=== PATIENT | female | born 1970 | race Caucasian/White ===

== ENCOUNTER → 2023-12-15 16:11 | Outpatient (REF) | payer OTHER, SELFPAY | LOC: HWWDC 16:11 | PROVIDERS: ATTENDING PHYSICIAN Nurse Practitioner Family | DX: Z12.31 Encounter for screening mammogram for malignant neoplasm of breast (principal) | CPT/HCPCS: 77063; 77067 ==

== ENCOUNTER 2024-03-17 17:05 | Inpatient (IN) | payer OTHER, SELFPAY ==
[2024-03-17 08:39] VITALS: BP 151/89
--- NOTE | 2024-03-17 09:23 | ED.GENMED ---
History of Present Illness
General
Chief Complaint: Cold/Flu/URI Symptoms
Source: patient
Exam Limitations: none
Time Seen by Provider: 03/17/24 09:10
History of Present Illness
History of Present Illness:
53-year-old female started with upper respiratory infections about a week ago. 2 days ago started developing chest symptoms with cough congestion wheezing. Pulse ox was low at overnight. I started Augmentin days ago. Changed to doxycycline and
prednisone yesterday evening. Took 60 mg of prednisone yesterday evening.
Past History
Past History
ED Past Medical History: Other (migraines, Gastritis, back pain); Negative Asthma, HTN, Hypercholesterolemia or NIDDM
ED Past Surgical History: Appendectomy, , Gynecological and Tonsilectomy
Social History
Tobacco: Smoker
Alcohol: Occasional
Drug: None
Personal:
Living: with family
Employment: Employed
Family History
Family History: Other (Noncontributory)
Review of Systems
Review of Systems
All Other Systems: Not applicable
Constitutional: Denies fever
Cardiac: Denies chest pain or syncope
Phy Exam
Physical Exam
Physical Exam:
GENERAL: Alert and oriented in no apparent distress
EYE: Orbits normal. Nasally congested.
NECK: Supple
CARDIAC: Regular rate and rhythm without any obvious murmurs.
LUNGS: No respiratory distress when speaking. However occasional coarse cough and diffuse expiratory wheezing
ABDOMEN: Soft, without focal tenderness or distention
NEUROLOGICAL: Alert and oriented , grossly non-focal
SKIN: Warm and dry, no rash or lesion, no discoloration, skin intact.
MUSCULOSKELETAL: No edema,no deformity.Good color
PSYCH: Normal and appropriate interaction.
Course
Orders/Labs/Results
Orders:
Orders
03/17/24 08:44
CXR2 [CR Chest - 2 Views ] Urgent
Comment:
Reason For Exam: uri
03/17/24 08:49
Influenza A+B Rapid Molecular Urgent
BERKLEY Source: Nasal Swab
Specimen Description:
03/17/24 09:20
Albuterol Sulfate [Ventolin Nebules] 7.5 mg INH R NOW STA
Ipratropium/Albuterol Sulfate [Duoneb] 3 ml INH R NOW STA
Prednisone [Deltasone] 40 mg PO NOW STA
03/17/24 09:54
COVID-19 Antigen Urgent
Source: Nasal Swab
Complete Blood Count/With Diff Urgent
Comprehensive Metabolic Panel Urgent
03/17/24 10:54
IV Insert/Care/Rem.- Treatment PRN
0.9% Sodium Chloride 500 ml [Nss] 500 ml IV BOLUS
Azithromycin 500 mg/250 ml [Zithromax Infusion] 500 mg in 250 ml IV NOW
CefTRIAXone [Rocephin] 1,000 mg IV NOW STA
03/17/24 12:22
PULMONARY CONSULT Routine
Consulting Provider: Tab Casey
Was physician already notified: Yes
03/17/24 12:24
Admit/Transfer Patient As Directed
Co-Sign Provider:
Level of Care: Observation services
Assign to:: Medical/Surgical
Physician / Group: mauricio woods
Diagnosis: bronchitis and pna
Reason for Hospitalization: bronchitis and pna
Expected length of stay greater than two midnights?: No
Reason for Overnight Stay: Standard of Care
03/17/24 12:26
PRN Pain Medication Management As Directed
May give lesser potent ordered pain med per pt: Yes
preference::
Protocol:: Medication orders for pain may be administered in a
manner that supports deferring to patient preference
when the pt is:
- Requesting an ordered lesser potent pain medication.
Least to most potent pain medications are defined
as: acetaminophen < NSAID < tramadol < opioids
(morphine, oxycodone, hydromorphone).
- Requesting a lesser dose of the same medication IF
ORDERED.
- Requesting a less intrusive route of administration
if both routes are prescribed by the provider (PO <
IV).
03/17/24 12:35
Code Status As Directed
Resuscitation Status: Full Code
03/17/24 12:42
Legionella Urinary Antigen Stat
BERKLEY Source: Urine
Specimen Description:
Sputum Culture [Respiratory Culture/Gram Stain] Urgent
BERKLEY Source: Sputum
Specimen Description:
Strep pneumoniae Antigen Stat
BERKLEY Source: Urine
Specimen Description:
03/17/24 14:00
CefTRIAXone [Rocephin] 1,000 mg IV Q24H
Doxycycline Hyclate [Vibramycin] 100 mg 0.9% Sodium Chloride 250 ml [Nss] 250 ml IV Q12H
03/17/24 20:00
Budesonide [Pulmicort] 0.5 mg INH R BID
Abnormal Lab Results
03/17/24
09:54
WBC 13.3 H 10^3/uL
(4.8-10.8)
Abs Immat Gran (auto) 0.1 H 10^3/uL
(0-0.05)
Absolute Neuts (auto) 10.1 H 10^3/uL
(1.4-6.5)
Absolute Monos (auto) 0.7 H 10^3/uL
(0.1-0.6)
Immature Gran % 0.6 H %
(0-0.5)
Neutrophils % 75.7 H %
(42.2-75.2)
Lymphocytes % 18.2 L %
(20.5-51.1)
Creatinine 0.5 L mg/dL
(0.6-1.0)
Glucose 119 H mg/dl
(70-99)
01/15/25 09:54
03/17/24 09:54
Vital Signs
Initial and Last Documented VS:
Initial Vital Signs
Temp Pulse Resp BP Pulse Ox
98.1 F 102 16 151/89 98
03/17/24 08:39 03/17/24 08:39 03/17/24 08:39 03/17/24 08:39 03/17/24 08:39
Last Documented Vital Signs
Temp Pulse Resp BP Pulse Ox
98.1 F 105 20 131/66 93
03/17/24 08:39 03/17/24 11:35 03/17/24 11:35 03/17/24 11:35 03/17/24 11:35
MDM/Problems Addressed
Differential Diagnosis Includes:
Patient describing upper respiratory symptoms that then progressed to lung issues. She has diffuse wheezing. She does smoke. Likely underlying viral issue. However I did question an infiltrate at the right base. She started a very reasonable
dose of prednisone last evening 60 mg. Will give a small additional dose this morning. Nebulizer treatments .reevaluate
*Radiology
Radiology exam reviewed: preliminary read by ED provider (Questionable right lower lobe infiltrate) and radiology read reviewed (Right lower lobe infiltrate)
*Pulse Oximetry
Patient hypoxic: no
*Critical Care Note
Total Time (30-74mins, 75-104mins- exclusive of procedures): Not Applicable
Data Reviewed
Review of Other/Old Records Reveals: Labs, Records, Radiology Studies, Testing and Discharge Summary
Update Note
Update Note:
Patient still with diffuse expiratory wheezing. Given the progression of symptoms despite outpatient antibiotics and history of severe pneumonia in the past patient warrants inpatient management
ED Attending Note
-
Portions of this chart may have been created with voice recognition software.� Occasional wrong word or��sound alike� substitutions may have occurred due to the inherent limitations of voice recognition software.
Discharge Plan
Departure
Patient Disposition: Admit
Date of Disposition: 03/17/24
Time of Disposition: 10:56
Presentation/result/management discussed w/ accepting MD/DO: Hospitalist
Discharge Problem:
Right lower lobe pneumonia, Failed outpatient antibiotics, Progression of symptoms
Interventions
Interventions:
*Risk Screen - Suicide Last Done: 03/17/24 08:39
*General Assessment Last Done: 03/17/24 10:54
*Neglect/Abuse Screening Last Done: 03/17/24 08:39
ED- Fall Risk Assessment Last Done: 03/17/24 11:31
*ED COVID-19 Vaccine History Last Done: 03/17/24 10:54
ED- Pulmonary Assessment Last Done: 03/17/24 10:54
[2024-03-17] MEDS: DELTASONE 40 MG PO (10:00)
[2024-03-17 10:03] LABS: % Basophils 0.2 % (0-2); % Immature Granulocytes 0.6 % (0-0.5); % Lymphocytes 18.2 % (20.5-51.1); % Monocytes 5.3 % (1.7-9.3); % Neutrophils 75.7 % (42.2-75.2); Absolute Immature Granulocytes 0.1 10^3/uL (0-0.05); Absolute Lymphocytes 2.4 10^3/uL (1.2-3.4); Absolute Monocytes 0.7 10^3/uL (0.1-0.6); Absolute Neutrophils 10.1 10^3/uL (1.4-6.5); Hemoglobin 13.7 g/dL (12.0-16.0); Mean Corp Hgb Conc. 33.4 g/dL (33.0-37.0); Mean Corpuscular Hgb 28.5 pg (27.0-31.0); Mean Corpuscular Volume 85.2 fL (81.0-99.0); Mean Platelet Volume 10.1 fL (7.4-10.4); Nucleated Red Blood Cells % 0 %; Platelet Count 255 10^3/uL (130-400); Red Blood Cell Count 4.81 10^6/uL (4.20-5.40); Red Cell Dist. Width 13.8 % (11.5-14.5); White Blood Cell Count 13.3 10^3/uL (4.8-10.8)
[2024-03-17] MEDS: VENTOLIN NEBULES 7.5 MG INH (10:03)
[2024-03-17] MEDS: DUONEB 3 ML INH ×2 (10:03→19:39)
[2024-03-17 10:13] LABS: COVID-19 Antigen Negative (Negative)
[2024-03-17 10:18] LABS: ALT (SGPT) 35 U/L (0-35); AST (SGOT) 24 U/L (14-36); Albumin 4.4 g/dl (3.5-5.0); Alkaline Phosphatase 94 U/L (38-126); Blood Urea Nitrogen 12 mg/dl (7-17); Calcium 9.6 mg/dl (8.4-10.2); Carbon Dioxide 24 mmol/L (22-30); Chloride 105 mmol/L (98-107); Glucose 119 mg/dl (70-99); Potassium 4.3 mmol/L (3.5-5.1); Sodium 140 mmol/L (135-145); Total Bilirubin 0.3 mg/dl (0.2-1.3); eGFR > 60.00
[2024-03-17 10:54] VITALS: BMI 34.5
[2024-03-17] MEDS: ROCEPHIN 1000 MG IV (11:25)
[2024-03-17] MEDS: NSS 500 IV (11:26)
[2024-03-17] MEDS: ZITHROMAX INFUSION 250 IV (11:30)
[2024-03-17 11:35] VITALS: BP 131/66
--- NOTE | 2024-03-17 12:38 | CON.PUL ---
Addendum entered and electronically signed by Tab Casey MD 03/17/24 16:27:
Of note, once pt ready for discharge would send home on a LABA/ICS, i.e. Symbicort 160mcg or Breo 200mcg or an equivalent. She should use this until her cough resolves for >72 hrs
Original Note:
Consultation
Consultation Request
Date/Time Consultation Requested: 03/17/20241221
Date/Time Consultation Performed: 03/17/2024 - 1232
Requesting Provider: Dr. Alexandre
Performing Provider: Dr. Casey
Reason for Consultation: Fatigue/SOB
Medical History
-
Chief Complaint: URI symptoms
History of Present Illness:
53-year-old female with a past medical history of anemia, headaches, GERD, history of TIA and history of COVID-19 who presents with URI symptoms with sinus congestion and cough. She had been on Augmentin but felt like her symptoms were not
improving so went to urgent care yesterday and they changed her antibiotics to doxycycline and prednisone for 8 days. Her symptoms unfortunately worsened so she is now here for evaluation. In the ER she was afebrile to 98.1 �F, pulse rate 102,
breathing at 16 breaths/min, BP 151/89 and saturating 90% on room air. Initial labs showed mild leukocytosis to 13.3, Hb 13.7, and COVID-19 antigen is negative. CXR shows suspected right lower lobe pneumonia. In the ER she was given IVF with NS
0.9% X5 100 cc, ceftriaxone/Zithromax, nebulized albuterol + DuoNebs, and 40 mg prednisone. She was admitted to Med/Surg for pneumonia and Pulmonary service now consulted for additional management/recommendations.
Pt seen in the ER. Currently on room air. Still having coughing spells. No SOB at rest. , Ezequiel, at bedside - all questions were answered. She says her Sx started this past with a throat tickle. Her and children have
all been sick recently, and her was on Abx. On Friday, the pt had worsening Sx with sinus congestion and runny nose with yellow nasal secretions, and she saw her dr who placed her on Augmentin. The next day on Friday she felt better, but
still coughing with chest pain that felt like burning + chest congestion. On Friday she was SOB and more symptomatic, so she went to urgent care and given Doxy and prednisone (starting at 60mg daily with a taper after 3 days). She has no Hx of
lung disease, has albuterol at home that she usually does not use, although lately shes been using it every 2-3 hours. She says she has been hearing herself wheeze at times as well. No VAZ, abd pain, N/V/d/f/c.
PMHx: Anemia, history of headaches, lumbar stenosis, GERD, gastritis, history of TIA, history of COVID-19
PSHx: Tonsillectomy, appendectomy, disc surgery, surgery for ectopic , uterine myomectomy,
Past Medical History
Past Medical History: Other (Above as per HPI)
Past Surgical History: Other (Above as per HPI)
Social History
Tobacco: Smoker (Smokes 1-1.5 PPD)
Alcohol: Occasional (Socially)
Drug: None
Employment: Employed
Family History
Family History: CAD (Paternal grandmother), Cancer (Mother: Breast cancer; paternal grandfather: Colon cancer) and Other (Father: Hypercholesterolemia, asthma/COPD and osteoarthritis; Mother: Stroke, hypercholesterolemia, osteoarthritis)
Allergies / Home Medications
Allergies
Allergy/AdvReac Type Severity Reaction Status Date / Time
No Known Allergies Allergy Verified 03/17/24 08:42
Home Medications
�Medication �Instructions �Recorded �Confirmed �Last Taken �Type
ascorbic acid (vitamin C) 500 mg 500 mg PO DAILY 03/17/24 03/17/24 03/16/24 History
tablet (Vitamin C)
aspirin 81 mg tablet,delayed 81 mg PO DAILY 03/17/24 03/17/24 03/16/24 History
release
cholecalciferol (vitamin D3) 25 25 mcg PO DAILY 03/17/24 03/17/24 03/16/24 History
mcg (1,000 unit) tablet (Vitamin
D3)
doxycycline hyclate 100 mg tablet 100 mg PO BID 03/17/24 03/17/24 03/16/24 History
guaifenesin 600 mg tablet, 600 mg PO [id number] PRN cough 03/17/24 03/17/24 03/16/24 History
extended release 12 hr (Mucinex)
prednisone 20 mg tablet 40 mg PO UD 03/17/24 03/17/24 03/16/24 History
Review of Systems
-
History Source: Patient
All other systems: Negative unless noted
Vitals / Labs / Diagnostic Testing
Vital Signs
Temp Pulse Resp BP Pulse Ox
98.1 F 105 20 131/66 93
03/17/24 08:39 03/17/24 11:35 03/17/24 11:35 03/17/24 11:35 03/17/24 11:35
Lab Data
03/17/24 09:54
03/17/24 09:54
Microbiology
03/17/24 08:49 Nasal Swab Influenza Types A & B (GUILHERME) - Final
Negative for Influenza A & B, NAAT
Negative results must be combined with clinical observations
and patient history.
Nucleic Acid Amplification test (NAAT)performed on the
[employer] platform.
Diagnostic Testing:
Physical Exam
-
HEENT: Normocephalic and Anicteric
Cardiovascular: S1/S2 and Peripheral Edema (negative)
Respiratory: Wheeze (heard in lower lung rush at end expiration), Rales (negative), Rhonchi (negative) and Non-Labored Respirations
GI: Soft, Non Distended, Non Tender and Normal Bowel Sounds
Neurology: AO x 3 and Tremors (negative)
Skin: Warm and Dry
General: Respiratory Distress (negative), Comfortable, Fever (negative) and Chills (negative)
Assessment
-
Assessment: 53-year-old female with a past medical history of anemia, headaches, GERD, history of TIA and history of COVID-19 who presents with URI symptoms with sinus congestion and cough. She had been on Augmentin but felt like her symptoms were
not improving so went to urgent care yesterday and they changed her antibiotics to doxycycline and prednisone for 8 days. Her symptoms unfortunately worsened so she is now here for evaluation. In the ER she was afebrile to 98.1 �F, pulse rate 102,
breathing at 16 breaths/min, BP 151/89 and saturating 90% on room air. Initial labs showed mild leukocytosis to 13.3, Hb 13.7, and COVID-19 antigen is negative. CXR shows suspected right lower lobe pneumonia. In the ER she was given IVF with NS
0.9% X5 100 cc, ceftriaxone/Zithromax, nebulized albuterol + DuoNebs, and 40 mg prednisone. She was admitted to Med/Surg for pneumonia and Pulmonary service now consulted for additional management/recommendations.
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
Impression:
#Acute respiratory failure with hypoxia due to right lower lobe pneumonia
#CAP involving RLL
#Leukocytosis (mild) due to above
#History of TIA
#History of COVID-19
Plan:
- Continue with broad-spectrum biotics with ceftriaxone/doxycycline and plan for 7 days assuming she continues to clinically improve and remains afebrile for 48 hours prior to stopping antibiotics
- Mucolytics with Acapella
- Will give DuoNebs scheduled QID with prn doses in between for breakthrough symptoms
- Antitussants with scheduled tessalon perles and prn codeine renita for nighttime so she can get some sleep
- Maintain SpO2 >90-94% with supplemental O2 as needed
- Check sputum culture if she can provide a decent sample and check blood cultures
- Check urine antigens for Legionella + strep pneumonia
- Although she is wheezing, given that she has no history of asthma/COPD unclear if systemic steroids are needed in this patient with nonsevere CAP
- Would give budesonide BID
- She will need repeat imaging in about 4 to 6 weeks to follow-up pneumonia resolution
- Nicotine patch; tobacco cessation reinforced
- Incentive spirometer encouraged q1hr while awake
- Replete electrolytes with K>4, Mg>2
- Maintain euglycemia with goal BG >100 and <180
- DVT ppx
Pulmonary service will continue to follow along. Outpatient office follow up with also be arranged.
Data:
CXR 03/17/2024: New findings since mild right lower lobe pneumonia. Atelectasis not excluded.
Total time spent today was 57 minutes for this encounter. Time includes reviewing laboratory test/imaging results, reviewing pertinent medical records, obtaining and reviewing medical history, performing an appropriate exam, ordering medications,
tests and procedures. Time also includes documentation of this encounter, coordinating patient care and communicating with other healthcare professionals. Total time does not include separately billed tests performed on this date of service.
--- NOTE | 2024-03-17 16:13 | HPS.HSE ---
Family Physician
-
Family Physician: EKATERINA Diaz
Chief Complaint
-
sob and cough
History of Present Illness
53 female with a past medical history of vitamin D deficiency, TIA who is a chronic active smoker, 1 pack/day. Presents with a 5-day history of cough shortness of breath fatigue feverish feeling. Was started on Augmentin on Friday by her PCP
however went to urgent care last night as there was no improvement was started on doxycycline and prednisone. Not requiring supplemental oxygen. Though does complain of pleuritic chest discomfort when she takes a deep breath then. Cough dry and
nonproductive. CXR right middle lobe infiltrate
Therefore at this time we will admit and treat for likely bacterial pneumonia that has failed outpatient treatment and will provide doxycycline along with Rocephin as there is evidence of sepsis with a white count of 13.3 and tachycardic.
Medical History
Past Medical History
Past Medical History: Reports CVA (TIA 5-6yrs ago)
Past Surgical History: Reports , Gynocological and Orthopedic
Social History
Tobacco: Smoker
Alcohol: None
Drug: None
Living: With Family
Family History
Family History: Not pertinent and Cancer
Allergies / Home Medications
Allergies reflects when Allergies were last updated in [facility].
Home Medications with original date entered in [facility]
Allergy/Medication List:
Allergies
Allergy/AdvReac Type Severity Reaction Status Date / Time
No Known Allergies Allergy Verified 03/17/24 08:42
Home Medications
ascorbic acid (vitamin C) 500 mg tablet (Vitamin C) 500 mg PO DAILY 03/17/24
aspirin 81 mg tablet,delayed release 81 mg PO DAILY 03/17/24
cholecalciferol (vitamin D3) 25 mcg (1,000 unit) tablet (Vitamin D3) 25 mcg PO DAILY 03/17/24
doxycycline hyclate 100 mg tablet 100 mg PO BID 03/17/24
guaifenesin 600 mg tablet, extended release 12 hr (Mucinex) 600 mg PO [id number] PRN cough 03/17/24
prednisone 20 mg tablet 40 mg PO UD 03/17/24
Review of Systems
-
A 12 point ROS was completed and negative except as noted: Yes
Physical Exam
Vital Signs
Vital Signs
Temp Pulse Resp BP Pulse Ox
98.1 F 105 20 131/66 93
03/17/24 08:39 03/17/24 11:35 03/17/24 11:35 03/17/24 11:35 03/17/24 11:35
Physical Exam
General: Well Developed
Laboratory Results
-
03/17/24 09:54
03/17/24 09:54
Laboratory Results
Total Bilirubin 0.3 mg/dl (0.2-1.3) 03/17/24 09:54
AST 24 U/L (14-36) 03/17/24 09:54
ALT 35 U/L (0-35) 03/17/24 09:54
Alkaline Phosphatase 94 U/L (38-126) 03/17/24 09:54
Impression/Plan
-
NAD
Scleral Anicteric
MMM
No JVD
Rhonchi and diminished breath sounds on the right lung, very mild wheezing throughout lung rush
RRR, S1/S2
Soft, NT, ND, BS+
Warm, Dry
AAOx3
Calm
Sepsis secondary to right middle lobe pneumonia, failed outpatient antibiotic
-IV antibiotics with doxycycline Rocephin
-Sputum culture, Legionella strep pneumo antigen
-Antipyretics
-As needed MDI for shortness of breath
-Acapella and incentive spirometer
? Acute bronchitis, potentially has underlying COPD however was not formally diagnosed
-Will consult pulmonary, likely requires PFTs
-Incentive spirometer
Pleuritic chest discomfort
-Will check EKG
Tobacco use
-Discussed cessation
-NRT
TIA
-Continue aspirin
-Neurology took her off of statin many years ago
[2024-03-17] MEDS: TYLENOL 650 MG PO (16:37)
[2024-03-17 17:07] VITALS: BP 128/70
[2024-03-17] MEDS: LOVENOX 40 MG SC (17:59)
[2024-03-17] MEDS: PULMICORT 0.5 MG INH (19:39)
[2024-03-17] MEDS: MOTRIN 200 MG PO (20:48)
[2024-03-17] MEDS: VIBRAMYCIN 260 MG IV (21:06)
[2024-03-17 23:50] VITALS: BP 134/71
[2024-03-18 06:44] LABS: Hematocrit 37.7 % (37.0-47.0); Hemoglobin 12.5 g/dL (12.0-16.0); Mean Corp Hgb Conc. 33.2 g/dL (33.0-37.0); Mean Corpuscular Hgb 28.9 pg (27.0-31.0); Mean Corpuscular Volume 87.3 fL (81.0-99.0); Mean Platelet Volume 10.6 fL (7.4-10.4); Platelet Count 219 10^3/uL (130-400); Red Blood Cell Count 4.32 10^6/uL (4.20-5.40); Red Cell Dist. Width 14.2 % (11.5-14.5); White Blood Cell Count 16.2 10^3/uL (4.8-10.8)
[2024-03-18] MEDS: DUONEB 3 ML INH ×2 (07:29→11:42)
[2024-03-18] MEDS: PULMICORT 0.5 MG INH (07:29)
[2024-03-18 07:43] VITALS: BP 137/93
[2024-03-18] MEDS: VITAMIN D3 (cholecalciferol) 25 MCG PO (07:52)
[2024-03-18] MEDS: ASPIR LOW (ENTERIC COATED) 81 MG PO (07:52)
[2024-03-18] MEDS: VITAMIN C 500 MG PO (07:52)
[2024-03-18 07:53] LABS: Blood Urea Nitrogen 16 mg/dl (7-17); Calcium 8.8 mg/dl (8.4-10.2); Carbon Dioxide 27 mmol/L (22-30); Chloride 106 mmol/L (98-107); Estimated Creatinine Clearance > 125 ml/min; Glucose 106 mg/dl (70-99); Potassium 4.3 mmol/L (3.5-5.1); Sodium 141 mmol/L (135-145); eGFR > 60.00
[2024-03-18] MEDS: VIBRAMYCIN 260 MG IV (07:53)
[2024-03-18] MEDS: SAFETUSSIN DM (SUGAR/ALCOHOL FREE) 100 MG PO (08:43)
--- NOTE | 2024-03-18 09:01 | W.PN.PUL3 ---
Today's Communication / Plan
-
Send home on Symbicort 160mcg and finish off a 7-day course of antibiotics
Send home on DuoNebs which can be used as needed
Antitussants prn
Up OOB as tolerated
Encourage incentive spirometer use
Mucinex
Outpatient follow-up will be arranged for symptom checkup, full PFTs and she will need repeat imaging in 4-6 weeks to follow-up for pneumonia resolution
Patient being prepared for discharge home. Outpatient follow-up will be arranged. No additional recommendations at this time. Pulmonary service will now sign off. Please reconsult if there are any additional questions/concerns, or if patient's
respiratory status deteriorates. Outpatient office follow up with also be arranged.
Assessment
-
Assessment: 53-year-old female with a past medical history of anemia, headaches, GERD, history of TIA and history of COVID-19 who presents with URI symptoms with sinus congestion and cough. She had been on Augmentin but felt like her symptoms were
not improving so went to urgent care yesterday and they changed her antibiotics to doxycycline and prednisone for 8 days. Her symptoms unfortunately worsened so she is now here for evaluation. In the ER she was afebrile to 98.1 �F, pulse rate 102,
breathing at 16 breaths/min, BP 151/89 and saturating 90% on room air. Initial labs showed mild leukocytosis to 13.3, Hb 13.7, and COVID-19 antigen is negative. CXR shows suspected right lower lobe pneumonia. In the ER she was given IVF with NS
0.9% X5 100 cc, ceftriaxone/Zithromax, nebulized albuterol + DuoNebs, and 40 mg prednisone. She was admitted to Med/Surg for pneumonia and Pulmonary service now consulted for additional management/recommendations.
Chronic conditions DEMAND PLANNER: Anemia, history of headaches, lumbar stenosis, GERD, gastritis, history of TIA, history of COVID-19
Impression:
#Acute respiratory failure with hypoxia due to right lower lobe pneumonia
#CAP involving RLL
#Leukocytosis (mild) due to above
#History of TIA
#History of COVID-19
Plan:
- Continue with broad-spectrum antibiotics with ceftriaxone/doxycycline and plan for 7 days assuming she continues to clinically improve and remains afebrile for 48 hours prior to stopping antibiotics
- Mucolytics with Acapella
- Continue DuoNebs scheduled QID with prn doses in between for breakthrough symptoms
- Antitussants with scheduled tessalon perles and prn codeine renita for nighttime so she can get some sleep
- Maintain SpO2 >90-94% with supplemental O2 as needed
- Follow up sputum culture (collected today); Urine antigens for Legionella + strep pneumonia are both negative
- Although she is wheezing, given that she has no history of asthma/COPD unclear if systemic steroids are needed in this patient with nonsevere CAP
- Send home on Symbicort 160mcg or an equivalent LABA/ICS inhaler
- Would continue budesonide 0.5mg BID while hospitalized
- She will need repeat imaging in about 4 to 6 weeks to follow-up pneumonia resolution
- Nicotine patch; tobacco cessation reinforced
- Incentive spirometer encouraged q1hr while awake
- Replete electrolytes with K>4, Mg>2
- Maintain euglycemia with goal BG >100 and <180
- DVT ppx
Patient being prepared for discharge home. Outpatient follow-up will be arranged. No additional recommendations at this time. Pulmonary service will now sign off. Thank you for allowing us to be involved in the care of this patient. Please
reconsult if there are any additional questions/concerns, or if patient's respiratory status deteriorates.
Data:
CXR 03/17/2024: New findings since mild right lower lobe pneumonia. Atelectasis not excluded.
Total time spent today was 26 minutes for this encounter. Time includes reviewing laboratory test/imaging results, reviewing pertinent medical records, obtaining and reviewing medical history, performing an appropriate exam, ordering medications,
tests and procedures. Time also includes documentation of this encounter, coordinating patient care and communicating with other healthcare professionals. Total time does not include separately billed tests performed on this date of service.
Subjective Data
-
Date of Service:
Date of Service: March 18, 2024
Chief Complaint: Pulmonary Follow Up
Subjective:
Patient seen and evaluated today at bedside. She is still coughing with some sinus/chest congestion. Bringing out her phlegm okay. Short of breath with exertion but overall she feels like she is improving. Being prepared for discharge home
today. Afebrile overnight. Denies VAZ, nausea, vomiting, fevers or chills.
Review of Systems
General: Other (Negative unless mentioned above)
Objective Data
Data Reviewed
Vital Signs / I&O / Oxygen:
Vital Signs
Temp Pulse Resp BP Pulse Ox
98.3 F 85 16 137/93 94
03/18/24 07:43 03/18/24 07:43 03/18/24 07:43 03/18/24 07:43 03/18/24 07:43
Intake and Output
03/17/24 03/18/24 03/19/24
06:59 06:59 06:59
Intake Total 730 / 730 480 / 480
Balance 730 / 730 480 / 480
SaO2 94
Physical Exam
General: Respiratory Distress (negative), Comfortable, Chills (negative) and Sweats (negative)
HEENT: Normocephalic and Anicteric
Cardiovascular: S1-S2, Rub (negative) and Peripheral Edema (negative)
Respiratory: Wheeze (negative), Rhonchi (negative), Accessory Resp Muscle Use (negative), Stridor (negative) and Other (Coarse breath sounds heard bilaterally)
GI: Soft, Distended (Abdominal obesity), Non Tender and Normal Bowel Sounds
Neurology: AO x 3 and Tremors (negative)
Skin: Warm, Dry, Cyanosis (negative) and Jaundice (negative)
Labs/Micro/Reports
Lab Data
03/18/24 06:31
03/18/24 06:31
Microbiology
03/17/24 16:39 Urine Legionella Urinary Antigen - Final
Negative for Legionella pneumophila Serogroup 1 antigen.
A negative result does not rule out the possiblity of
Legionella infection due to other serogroups or species of
Legionella. Clinical correlation is recommended.
03/17/24 16:39 Urine Streptococcus pneumoniae Antigen (M - Final
Negative for Streptococcus pneumoniae antigen.
A negative result does not exclude infection with
Streptococcus pneumoniae. Clinical correlation is
recommended.
03/17/24 08:49 Nasal Swab Influenza Types A & B (GUILHERME) - Final
Negative for Influenza A & B, NAAT
Negative results must be combined with clinical observations
and patient history.
Nucleic Acid Amplification test (NAAT)performed on the
[employer] platform.
[2024-03-18] MEDS: TESSALON PERLES 100 MG PO (10:06)
[2024-03-18] MEDS: STERILE WATER FOR INJECTION 10 ML IV (10:07)
[2024-03-18] MEDS: ROCEPHIN 1000 MG IV (10:08)
--- NOTE | 2024-03-18 13:08 | W.PN.HOSP.TC ---
Today's Communication/Plan
-
DC home
More than 30 minutes spent in discharge including
Final examination of the patient
Summarizing hospital stay
Instructions for continuing care to all relevant caregivers
Preparation of discharge records, prescriptions, and referral forms
Total time spent (in minutes): 33min
Assessment / Plan
Assessment / Plan
NAD
Scleral Anicteric
MMM
No JVD
Chest tightness with very mild wheezing improved from yesterday
RRR, S1/S2
Soft, NT, ND, BS+
Warm, Dry
AAOx3
Calm
Sepsis secondary to right middle lobe pneumonia, failed outpatient antibiotic
-IV antibiotics with doxycycline Rocephin, transition to p.o. antibiotics with doxycycline cefdinir with complete full 10-day course
-Sputum culture, Legionella strep pneumo antigen negative
-No growth
-Antipyretics
-As needed MDI for shortness of breath
-Acapella and incentive spirometer
-Repeat CXR 4 to 6 weeks
? Acute bronchitis, potentially has underlying COPD however was not formally diagnosed
-Pulmonary following, started Symbicort for discharge
-Incentive spirometer
-PFTs as outpatient
Pleuritic chest discomfort
-Resolved
-EKG tachycardic
Tobacco use
-Discussed cessation
-NRT
TIA
-Continue aspirin
-Neurology took her off of statin many years ago
Anticipated Discharge: Today
Subjective/Interval History
-
Date of Service: March 18, 2024
Seen and examined. No new complaints. No acute overnight events.
Objective Data
-
Labs:
Laboratory Results
03/18/24
06:31
WBC 16.2 H
Hgb 12.5
Hct 37.7
Plt Count 219
Sodium 141
Potassium 4.3
Chloride 106
Carbon Dioxide 27
BUN 16
Creatinine 0.6
Glucose 106 H
Calcium 8.8
Vital Signs:
Vital Signs
Temp Pulse Resp BP Pulse Ox
98.3 F 95 18 137/93 94
03/18/24 07:43 03/18/24 11:44 03/18/24 11:44 03/18/24 07:43 03/18/24 11:44
I&O
03/17/24 03/18/24 03/19/24
06:59 06:59 06:59
Intake Total 730 / 730 480 / 480
Balance 730 / 730 480 / 480
--- NOTE | 2024-03-18 13:11 | W.DCSUMMARY ---
Discharge Summary
Discharge Data
Date of Admission: 03/17/24
Date of Discharge: 03/18/24
-
Pending Results: No
Hospital Course
53 female history of TIA, vitamin D deficiency
Presented for ongoing shortness of breath sinus congestion cough and upper respiratory tract infection. Started on Augmentin without improvement followed by doxycycline prednisone without improvement. Therefore presented to the hospital found to
have a heart rate of 102 O2 sat of 90% chest x-ray concerning for right lower lobe pneumonia. Started on IV antibiotics with Rocephin and doxycycline. Evaluated by pulmonary which recommended continuation of mucolytic's and Acapella. IV
antibiotics. Sputum culture no growth, negative strep Legionella urinary antigen. Influenza negative. COVID-negative. Pulmonary further recommended to continue use of inhaler up until 72 hours after coughing has resolved. Will send DME for
nebulizer along with nebulizer fluid. Will need outpatient pulmonary follow-up for PFTs and repeat CXR in 4 to 6 weeks.
Discharge Plan
-
Patient Disposition: Home (Routine Discharge)
Discharge Diagnosis/Procedures: Pneumonia
Condition: Good
Diet: As tolerated
Activity: As tolerated
Activity Restrictions/Additional Instructions:
Presented for ongoing shortness of breath sinus congestion cough and upper respiratory tract infection. Started on Augmentin without improvement followed by doxycycline prednisone without improvement. Therefore presented to the hospital found to
have a heart rate of 102 O2 sat of 90% chest x-ray concerning for right lower lobe pneumonia. Started on IV antibiotics with Rocephin and doxycycline. Evaluated by pulmonary which recommended continuation of mucolytic's and Acapella. IV
antibiotics. Sputum culture no growth, negative strep Legionella urinary antigen. Influenza negative. COVID-negative. Pulmonary further recommended to continue use of inhaler up until 72 hours after coughing has resolved. Will send DME for
nebulizer along with nebulizer fluid. Will need outpatient pulmonary follow-up for PFTs and repeat CXR in 4 to 6 weeks.
Instructions: Community-acquired pneumonia in adults, Quitting smoking for adults
Referrals:
Yariel Josue CRNP [Family Provider] -
Tab Casey MD [Active] - in two to four weeks (full PFTs on day of office visit)
Prescriptions:
New
Iva Saline Gel
1 applic intranasal Q2HPRN PRN (Reason: post nasal drip) Qty: 14.1 0RF
ipratropium-albuterol 0.5 mg-3 mg(2.5 mg base)/3 mL Solution For Nebulization
3 ml inhalation R QID Qty: 90 0RF
benzonatate 100 mg Capsule
100 mg PO TIDPRN PRN (Reason: cough) 5 Days Qty: 15 0RF
doxycycline hyclate 100 mg capsule
100 mg PO BID Qty: 20 0RF
cefdinir 300 mg capsule
300 mg PO BID Qty: 20 0RF
budesonide-formoterol [Symbicort] 160-4.5 mcg/actuation HFA aerosol inhaler
2 puff inhalation Q12H Qty: 10.2 0RF
Continued
ascorbic acid (vitamin C) [Vitamin C] 500 mg Tablet
500 mg PO DAILY
cholecalciferol (vitamin D3) [Vitamin D3] 25 mcg (1,000 unit) Tablet
25 mcg PO DAILY
guaifenesin [Mucinex] 600 mg tablet extended release 12hr
600 mg PO [id number] PRN (Reason: cough)
aspirin 81 mg Tablet,Delayed Release (Dr/Ec)
81 mg PO DAILY
Discontinued
doxycycline hyclate 100 mg Tablet
100 mg PO BID
prednisone 20 mg tablet
40 mg PO UD
Rx Instructions:
take 60mg daily for 3 days then 40mg daily for 3 days then 20mg daily for 3 days
Discharge Orders:
Discharge Patient (As Directed); Ordered 03/18/24
Ordered By: José Alexandre
Discharge Date and Time
Print Language: DIVEHI
--- NOTE | 2024-03-18 13:20 | CM ---
CM reviewed medical records. NO needs noted on discharge.
PLAN: Home no needs.
== END 2024-03-18 14:14 | disposition home or self-care (01) | DRG 871 ==
LOC: 1 ACUTE 17:05
PROVIDERS: Emergency Medicine; ADMITTING PHYSICIAN Hospitalist; CONSULT PHYSICIAN Internal Medicine Critical Care Medicine; EMERGENCY PHYSICIAN Emergency Medicine; FAMILY PHYSICIAN Nurse Practitioner Family
DX: A41.9 Sepsis, unspecified organism (principal); J15.9 Unspecified bacterial pneumonia; J96.01 Acute respiratory failure with hypoxia; J44.0 Chronic obstructive pulmonary disease with (acute) lower respiratory infection; F17.210 Nicotine dependence, cigarettes, uncomplicated; Z11.52 Encounter for screening for COVID-19; Z86.73 Personal history of transient ischemic attack (TIA), and cerebral infarction without residual deficits; D64.9 Anemia, unspecified; K29.70 Gastritis, unspecified, without bleeding; Z86.16 Personal history of COVID-19
CPT/HCPCS: 71046; 80048; 80053; 85025; 85027; 87205; 87449; 87502; 87811; 87899; 93005; 94640; 94644; 96361; 96365; 96375; 99285

== ENCOUNTER 2024-09-01 17:03 | Emergency (ER) | payer OTHER, SELFPAY ==
[2024-09-01 17:25] VITALS: BP 151/93
--- NOTE | 2024-09-01 17:53 | ED.GENMED ---
History of Present Illness
General
Chief Complaint: Back Pain
Time Seen by Provider: 09/01/24 17:45
History of Present Illness
History of Present Illness:
54-year-old female history of migraines, low back pain presenting with left back pain for the past 2 weeks. Patient states that she was seen by her PCP who thought was a muscular strain, gave Medrol Dosepak and cyclobenzaprine. Patient states that
symptoms seem to improve. Patient states symptoms for started after she was standing cooking for Father's Day, suspects that she strained her back. Patient states that today she was having sharp left flank pain radiating to her abdomen. Patient
states that she took cyclobenzaprine with some improvement. Patient reports dysuria starting today. Patient denies fever, chills, hematuria, nausea or vomiting. No recent falls/heavy lifting. Patient denies numbness, weakness, tingling or
incontinence. No history of kidney stones.
Past History
Past History
ED Past Medical History: Other (migraines, Gastritis, back pain); Negative Asthma, HTN, Hypercholesterolemia or NIDDM
ED Past Surgical History: Appendectomy, , Gynecological and Tonsilectomy
Social History
Tobacco: Smoker
Alcohol: Occasional
Drug: None
Personal:
Living: with family
Employment: Employed
Family History
Family History: Other (Noncontributory)
Phy Exam
Physical Exam
Physical Exam:
General: Alert, no acute distress
Head: NCAT
Eyes: clear conjunctiva
Neck: supple
Cardiac: regular rate and rhythm, no murmur
Lungs: clear to auscultation bilaterally. No wheezes, rales, or rhonchi. Speaking full unlabored sentences. No respiratory distress.
Abdomen: soft, nondistended nontender. No rebound or guarding. Left CVA tenderness. No right CVA tenderness.
MSK: no lower extremity edema bilaterally. No deformity. No midline thoracic/lumbar tenderness to palpation
Skin: warm, dry
Neuro: Alert and oriented x3. 5 out of 5 strength bilateral hip/knee/ankle flexion extension. Sensation intact with no saddle paresthesias
Course
Orders/Labs/Results
Orders:
Orders
09/01/24 17:52
CT Abd/pelvis Wo Iv Cont Urgent
Comment:
Reason For Exam: left cva tenderness
Ketorolac [Toradol] 15 mg IV NOW STA
09/01/24 18:07
BMP [Basic Metabolic Panel] Urgent
CBC/With Diff [Complete Blood Count/With Diff] Urgent
Urinalysis Reflex To Culture Urgent
Date Specimen was Collected: 09/01/24
Time Specimen was Collected: 17:29
Urine Microscopic Reflex Cult Urgent
Urine Culture Urgent
BERKLEY Source: U
Specimen Description:
Date Specimen was Collected: 09/01/24
Time Specimen was Collected: 17:29
09/01/24 20:12
CefTRIAXone [Rocephin] 1,000 mg IV NOW STA
Abnormal Lab Results
09/01/24
18:07
WBC 14.0 H 10^3/uL
(4.8-10.8)
Abs Immat Gran (auto) 0.1 H 10^3/uL
(0-0.05)
Absolute Neuts (auto) 8.2 H 10^3/uL
(1.4-6.5)
Absolute Lymphs (auto) 4.2 H 10^3/uL
(1.2-3.4)
Absolute Monos (auto) 0.9 H 10^3/uL
(0.1-0.6)
Chloride 109 H mmol/L
(98-107)
Creatinine 0.5 L mg/dL
(0.6-1.0)
Glucose 129 H mg/dl
(70-99)
Leukocyte Esterase Rfl 1+ A
(Negative)
Urine RBC 3-6 A /HPF
(0-2)
Urine WBC (Reflex) 11-15 A /HPF
(0-5)
Urine Bacteria (Reflex) Few A
(Negative)
09/01/24 18:07
09/01/24 18:07
Vital Signs
Initial and Last Documented VS:
Initial Vital Signs
Temp Pulse Resp BP Pulse Ox
99.2 F 109 18 151/93 97
09/01/24 17:25 09/01/24 17:25 09/01/24 17:25 09/01/24 17:25 09/01/24 17:25
Last Documented Vital Signs
Temp Pulse Resp BP Pulse Ox
99.2 F 109 18 151/93 97
09/01/24 17:25 09/01/24 17:25 09/01/24 17:25 09/01/24 17:25 09/01/24 17:55
MDM/Problems Addressed
Differential Diagnosis Includes:
Kidney stone, UTI, pyelonephritis, muscular strain
MDM/Problems Addressed:
Results reviewed. Significant for WBC 14. UA shows possible UTI but higher suspicion for contamination given elevated squamous epithelial cells. CT abdomen pelvis shows no nephroureterolithiasis or hydronephrosis. Chronic mild degenerative
changes of spine. Grade 1 degeneration anterolisthesis of L4 on L5. Given elevated white count, reported dysuria, will treat for UTI with Keflex. Ordered dose of ceftriaxone here in the emergency department. Discussed results with patient at
bedside. Higher suspicion left back pain due to muscle strain. Advised to take Tylenol/Flexeril/meloxicam/lidocaine patch. Stable for discharge with PCP follow-up
*Pulse Oximetry
SaO2: 97
Oxygen Mode of Delivery: Room air
Patient hypoxic: no
*Critical Care Note
Total Time (30-74mins, 75-104mins- exclusive of procedures): Not Applicable
ED Attending Note
-
Portions of this chart may have been created with voice recognition software.� Occasional wrong word or��sound alike� substitutions may have occurred due to the inherent limitations of voice recognition software.
Discharge Plan
Departure
Patient Disposition: Home (Routine Discharge)
Date of Disposition: 09/01/24
Time of Disposition: 20:14
Patient with high blood pressure during this ER visit?: Yes
Discharge Problem:
UTI (urinary tract infection)
Instructions: Urinary tract infections in adults, Low Back Pain (DC), BLOOD PRESSURE
Prescriptions:
New
cephalexin 500 mg capsule
500 mg PO TID 7 Days Qty: 21 0RF
cyclobenzaprine 5 mg tablet
5 mg PO TID PRN (Reason: muscle spasm) Qty: 30 0RF
lidocaine 5 % adhesive patch,medicated
1 patch topical DAILY Qty: 30 0RF
meloxicam 15 mg tablet
15 mg PO DAILY Qty: 30 0RF
No Action
ascorbic acid (vitamin C) [Vitamin C] 500 mg Tablet
500 mg PO DAILY
cholecalciferol (vitamin D3) [Vitamin D3] 25 mcg (1,000 unit) Tablet
25 mcg PO DAILY
guaifenesin [Mucinex] 600 mg tablet extended release 12hr
600 mg PO [id number] PRN (Reason: cough)
aspirin 81 mg Tablet,Delayed Release (Dr/Ec)
81 mg PO DAILY
Victoria Saline Gel
1 applic intranasal Q2HPRN PRN (Reason: post nasal drip) Qty: 14.1 0RF
ipratropium-albuterol 0.5 mg-3 mg(2.5 mg base)/3 mL Solution For Nebulization
3 ml inhalation R QID Qty: 90 0RF
benzonatate 100 mg Capsule
100 mg PO TIDPRN PRN (Reason: cough) 5 Days Qty: 15 0RF
doxycycline hyclate 100 mg capsule
100 mg PO BID Qty: 20 0RF
cefdinir 300 mg capsule
300 mg PO BID Qty: 20 0RF
budesonide-formoterol [Symbicort] 160-4.5 mcg/actuation HFA aerosol inhaler
2 puff inhalation Q12H Qty: 10.2 0RF
Referrals:
Yariel Josue CRNP [Family Provider, [facility]]
Activity Restrictions/Additional Instructions:
Take Keflex 3 times daily for 7 days
Take meloxicam daily for pain
Take Tylenol 975 mg every 6 hours as needed for pain
Take Flexeril as needed for muscle spasm
Use lidocaine patch as needed for pain
Follow-up with primary care doctor in 1 to 2 days
Return to the emergency department for fever, persistent vomiting, numbness, weakness, tingling or new/worsening symptoms
Interventions
Interventions:
*Risk Screen - Suicide Last Done: 09/01/24 17:25
*General Assessment Last Done: 09/01/24 17:25
*Neglect/Abuse Screening Last Done: 09/01/24 17:25
*ED COVID-19 Vaccine History Last Done: 09/01/24 17:25
*Nursing Disposition Last Done: 09/01/24 20:37
ED-Musculoskeletal Assessment Last Done: 09/01/24 18:00
Discharge Date and Time
Discharge Date/Time: 09/01/24 20:37
Print Language: [email or web address]
[2024-09-01] MEDS: TORADOL 15 MG IV (18:11)
[2024-09-01 18:15] LABS: Hematocrit 37.4 % (37.0-47.0); Hemoglobin 12.8 g/dL (12.0-16.0); Mean Corp Hgb Conc. 34.2 g/dL (33.0-37.0); Mean Corpuscular Volume 85.4 fL (81.0-99.0); Nucleated Red Blood Cells % 0 %; Platelet Count 288 10^3/uL (130-400); Red Cell Dist. Width 13.2 % (11.5-14.5)
[2024-09-01 18:19] LABS: Urine Character Clear (Clear)
[2024-09-01 18:29] LABS: Urine Squamous Cell 26-30 /LPF (Few); Urine Urothelial Cell 0-2 /LPF (FEW)
[2024-09-01 18:37] LABS: Blood Urea Nitrogen 16 mg/dl (7-17); Calcium 9.2 mg/dl (8.4-10.2); Carbon Dioxide 22 mmol/L (22-30); Chloride 109 mmol/L (98-107); Glucose 129 mg/dl (70-99); Potassium 4.3 mmol/L (3.5-5.1); Sodium 137 mmol/L (135-145); eGFR > 60.00
[2024-09-01] MEDS: ROCEPHIN 1000 MG IV (20:31)
== END 2024-09-01 20:37 | disposition home or self-care (01) ==
LOC: EMR 17:03
PROVIDERS: Student in an Organized Health Care Education/Training Program; EMERGENCY PHYSICIAN Emergency Medicine; FAMILY PHYSICIAN Nurse Practitioner Family
DX: N39.0 Urinary tract infection, site not specified (principal); M54.50 Low back pain, unspecified; F17.200 Nicotine dependence, unspecified, uncomplicated
CPT/HCPCS: 96374; 96375; 99284; 74176; 80048; 81003; 81015; 85025; 87086

== ENCOUNTER 2025-02-12 03:58 | Emergency (ER) | payer OTHER, SELFPAY ==
[2025-02-12 04:00] VITALS: BP 105/66
[2025-02-12 04:16] VITALS: BMI 35.0
--- NOTE | 2025-02-12 04:26 | ED.GENMED ---
History of Present Illness
General
Chief Complaint: Abdominal Symptoms
Source: patient
Exam Limitations: none
Time Seen by Provider: 02/12/25 04:21
Nursing documentation reviewed up to this point in time: agreed with
History of Present Illness
History of Present Illness:
54-year-old female with a past medical history as noted presents to the emergency department for evaluation of abdominal pains, nausea/vomiting and diarrhea. Patient reports onset of symptoms tonight around 2 AM and have been constant since that
time although intensity seems to wax and wane. She reports pain in the epigastrium nonradiating. Associated with multiple episodes of nausea and vomiting as well as diarrhea tonight. She says while sitting on the toilet she did notice she was
having paresthesias and lightheadedness as well. She denies fever but has had some chills. Was in her normal state of health before going to bed last night. She denies having had similar symptoms in the past. She has prior history of
appendectomy and .
Past History
Past History
ED Past Medical History: Other (migraines, Gastritis, back pain); Negative Asthma, HTN, Hypercholesterolemia or NIDDM
ED Past Surgical History: Appendectomy, , Gynecological and Tonsilectomy
Social History
Tobacco: Smoker
Alcohol: Occasional
Drug: None
Personal:
Living: with family
Employment: Employed
Family History
Family History: Other (Noncontributory)
Review of Systems
Review of Systems
All Other Systems: ROS reviewed and negative except as documented in HPI and ROS
Constitutional: Reports chills; Denies fever
Respiratory: Denies trouble breathing
Cardiac: Denies chest pain
ABD/GI: Reports abdominal pain, nausea, vomiting and diarrhea
: Denies flank pain
Musculoskeletal: Denies neck pain or back pain
Neurological: Reports dizzy; Denies headache
Phy Exam
Physical Exam
Physical Exam:
General: Awake, alert, oriented x3; appears mildly uncomfortable
Head: Normocephalic, atraumatic
Eyes: Conjunctiva normal, sclera anicteric
Throat: Airway intact, handling secretions
Neck: Trachea midline, supple without meningismus
Lungs: Clear to auscultation bilaterally, no wheezing, rales, rhonchi
Heart: Regular rate and rhythm, no murmurs, gallops, or rubs
Abd: Soft, non distended, tender to palpation in the epigastrium
Neuro: Grossly intact
Skin: Warm and dry
Extremities: Warm and well-perfused
Scores
Heart Failure Risk
Heart Failure Risk Score: Not Applicable
Heart Score for Chest Pain Patients
STEMI patient?: Not applicable
Withdrawal Assessment of Alcohol
Withdrawal Assessment Completed?: Not applicable
Course
Orders/Labs/Results
Orders:
Orders
02/12/25 04:25
Electrocardiogram (*1) Urgent
Reason for Study: Abdominal Pain
EKG- Treatment ONCE
02/12/25 04:28
Morphine Sulfate 4 mg IV NOW STA
Ondansetron Injectable [Zofran] 4 mg IV NOW STA
02/12/25 04:29
0.9% Sodium Chloride 1000 ml [Nss] 1,000 ml IV BOLUS
US Abdomen Complete/Upper Urgent
Comment:
Reason For Exam: abd pain, N/V
02/12/25 04:39
COVID-19 Antigen Urgent
Source: Nasal Swab
Complete Blood Count/With Diff Urgent
Comprehensive Metabolic Panel Urgent
Lipase Urgent
Troponin I Urgent
Influenza A+B Rapid Molecular Urgent
BERKLEY Source: Nasal Swab
Specimen Description:
02/12/25 06:02
CT Abd/pelvis W Iv Cont Urgent
Comment:
Reason For Exam: abd pain, N/V
02/12/25 06:54
Ondansetron Injectable [Zofran] 4 mg IV NOW STA
Abnormal Lab Results
02/12/25
04:39
WBC 23.9 H 10^3/uL
(4.8-10.8)
MPV 10.8 H fL
(7.4-10.4)
Abs Immat Gran (auto) 0.2 H 10^3/uL
(0-0.05)
Absolute Neuts (auto) 19.9 H 10^3/uL
(1.4-6.5)
Absolute Monos (auto) 1.3 H 10^3/uL
(0.1-0.6)
Immature Gran % 0.6 H %
(0-0.5)
Neutrophils % 83.3 H %
(42.2-75.2)
Lymphocytes % 9.3 L %
(20.5-51.1)
BUN 20 H mg/dl
(7-17)
Glucose 150 H mg/dl
(70-99)
ALT 51 H U/L
(0-35)
02/12/25 04:39
02/12/25 04:39
Vital Signs
Initial and Last Documented VS:
Initial Vital Signs
Temp Pulse Resp BP Pulse Ox
36.5 C 92 16 105/66 98
02/12/25 04:00 02/12/25 04:00 02/12/25 04:00 02/12/25 04:00 02/12/25 04:00
Last Documented Vital Signs
Temp Pulse Resp BP Pulse Ox
36.5 C 94 16 114/59 97
02/12/25 04:00 02/12/25 06:43 02/12/25 04:00 02/12/25 07:00 02/12/25 07:30
MDM/Problems Addressed
Differential Diagnosis Includes:
Gastritis, pancreatitis, cholelithiasis, cholecystitis, enteritis
MDM/Problems Addressed:
54-year-old female presents for evaluation of epigastric pain associate with nausea, vomiting, diarrhea started overnight. Vitals and exam as above. Plan to check labs including CBC and a CMP, lipase. Check urinalysis. Will check EKG and
troponin for completeness although low suspicion that these are anginal symptoms. Will provide IV fluids, pain control and antiemetic. Check upper abdominal ultrasound. Monitor closely reassess after the above.
Labs reviewed: CBC shows marked leukocytosis to 23.9, chemistry no clinically significant abnormalities. Troponin undetectable. Viral swabs are negative. Ultrasound negative for hepatobiliary pathology. Clinical reassessment patient is feeling
better after medications here; she is having some mild persistent tenderness and given her marked leukocytosis will check CT abdomen.
CT shows mild colitis but no other acute abnormalities. Suspect likely viral illness�no recent travel, antibiotics or other risk factors to suggest bacterial infection. Patient feeling well on clinical reassessment after medications here. Will
trial p.o. if she does well can likely be discharged with supportive care. She did have marked leukocytosis suspect in part hemoconcentration in part stress reaction from profuse vomiting, in part infection. Will need repeat labs as an outpatient.
Patient tolerating p.o. here without issue, says she is feeling much better. Offered admission for continued observation but she feels comfortable discharge with supportive care. Advised regarding bland diet, encouraged p.o. fluids. Spoke about
follow-up for repeat labs and provided a copy of all results for follow-up. Spoke about return precautions. All questions answered.
*Radiology
Radiology exam reviewed: radiology read reviewed
*Pulse Oximetry
SaO2: 98
Oxygen Mode of Delivery: Room air
Patient hypoxic: no (98%)
*Critical Care Note
Total Time (30-74mins, 75-104mins- exclusive of procedures): Not Applicable
Data Reviewed
Source: patient, records and family
Patient Management
Escalation/DeEscalation of care consider admission/obs:
Considered admission�shared decision making discharged with supportive care
ED Attending Note
-
Portions of this chart may have been created with voice recognition software.� Occasional wrong word or��sound alike� substitutions may have occurred due to the inherent limitations of voice recognition software.
Discharge Plan
Departure
Patient Disposition: Home (Routine Discharge)
Date of Disposition: 02/12/25
Time of Disposition: 08:07
Patient with high blood pressure during this ER visit?: No
Discharge Problem:
Colitis
Instructions: Colitis (DC), [place] diet
Prescriptions:
New
ondansetron 4 mg tablet,disintegrating
4 mg PO TIDPRN PRN (Reason: nausea/vomiting) Qty: 14 0RF
No Action
ascorbic acid (vitamin C) [Vitamin C] 500 mg Tablet
500 mg PO DAILY
cholecalciferol (vitamin D3) [Vitamin D3] 25 mcg (1,000 unit) Tablet
25 mcg PO DAILY
guaifenesin [Mucinex] 600 mg tablet extended release 12hr
600 mg PO [id number] PRN (Reason: cough)
aspirin 81 mg Tablet,Delayed Release (Dr/Ec)
81 mg PO DAILY
[place] Saline Gel
1 applic intranasal Q2HPRN PRN (Reason: post nasal drip) Qty: 14.1 0RF
ipratropium-albuterol 0.5 mg-3 mg(2.5 mg base)/3 mL Solution For Nebulization
3 ml inhalation R QID Qty: 90 0RF
benzonatate 100 mg Capsule
100 mg PO TIDPRN PRN (Reason: cough) 5 Days Qty: 15 0RF
doxycycline hyclate 100 mg capsule
100 mg PO BID Qty: 20 0RF
cefdinir 300 mg capsule
300 mg PO BID Qty: 20 0RF
budesonide-formoterol [Symbicort] 160-4.5 mcg/actuation HFA aerosol inhaler
2 puff inhalation Q12H Qty: 10.2 0RF
cephalexin 500 mg capsule
500 mg PO TID 7 Days Qty: 21 0RF
cyclobenzaprine 5 mg tablet
5 mg PO TID PRN (Reason: muscle spasm) Qty: 30 0RF
lidocaine 5 % adhesive patch,medicated
1 patch topical DAILY Qty: 30 0RF
meloxicam 15 mg tablet
15 mg PO DAILY Qty: 30 0RF
Referrals:
Kirstin Brewster CRNP [Family Provider, General] - Follow up in 5-7 days
Activity Restrictions/Additional Instructions:
Thank you for visiting the Emergency Department at [facility].
1. Please schedule a follow up appointment as directed. Call first thing tomorrow morning to make an appointment.
2. If indicated, please take your medications as instructed and indicated on discharge paperwork.
3. If any of your symptoms do not improve, or persist, or become more severe within 6-12 hours, please return to the emergency department for further care.
4. Please return to the emergency department if you develop a headache, neck pain/stiffness, fever greater than 100.4F, chest pain, shortness of breath, persistent nausea, vomiting, slurred speech, difficulty walking, numbness/tingling, weakness,
signs of infection or any other symptoms that are worrisome to you.
Please call [phone] if you have any questions.
Interventions
Interventions:
*Risk Screen - Suicide Last Done: 02/12/25 04:00
*General Assessment Last Done: 02/12/25 04:16
*Neglect/Abuse Screening Last Done: 02/12/25 04:16
*ED COVID-19 Vaccine History Last Done: 02/12/25 04:16
*ED Influenza Vaccine History Last Done: 02/12/25 04:16
[facility] Fall Risk Assessment Tool Last Done: 02/12/25 04:16
[facility] Assessment Last Done: 02/12/25 04:16
Discharge Date and Time
Print Language: TAJIK
[2025-02-12 04:35] VITALS: BP 97/56
[2025-02-12] MEDS: MORPHINE SULFATE 4 MG IV (04:41)
[2025-02-12] MEDS: NSS 1000 IV (04:42)
[2025-02-12] MEDS: ZOFRAN 4 MG IV ×2 (04:42→07:01)
[2025-02-12 04:56] LABS: Hematocrit 42.4 % (37.0-47.0); Hemoglobin 14.2 g/dL (12.0-16.0); Mean Corp Hgb Conc. 33.5 g/dL (33.0-37.0); Mean Corpuscular Volume 83.5 fL (81.0-99.0); Nucleated Red Blood Cells % 0 %; Platelet Count 307 10^3/uL (130-400); Red Cell Dist. Width 13.1 % (11.5-14.5)
[2025-02-12 05:00] VITALS: BP 108/62
[2025-02-12 05:07] LABS: COVID-19 Antigen Negative (Negative)
[2025-02-12 05:20] LABS: ALT (SGPT) 51 U/L (0-35); AST (SGOT) 31 U/L (14-36); Albumin 4.8 g/dl (3.5-5.0); Alkaline Phosphatase 86 U/L (38-126); Blood Urea Nitrogen 20 mg/dl (7-17); Calcium 10.0 mg/dl (8.4-10.2); Carbon Dioxide 22 mmol/L (22-30); Chloride 102 mmol/L (98-107); Estimated Creatinine Clearance 105 ml/min; Glucose 150 mg/dl (70-99); Lipase 146 U/L (23-300); Potassium 4.0 mmol/L (3.5-5.1); Sodium 138 mmol/L (135-145); Total Protein 7.5 g/dl (6.3-8.2); eGFR > 60.00
[2025-02-12 05:31] LABS: Troponin I < 0.012 ng/ml
[2025-02-12 06:00] VITALS: BP 123/74
[2025-02-12 07:00] VITALS: BP 114/59
[2025-02-12 08:00] VITALS: BP 115/52
== END 2025-02-12 08:26 | disposition home or self-care (01) ==
LOC: EMR 03:58
PROVIDERS: EMERGENCY PHYSICIAN Emergency Medicine; FAMILY PHYSICIAN Nurse Practitioner Adult Health
DX: K52.9 Noninfective gastroenteritis and colitis, unspecified (principal); F17.200 Nicotine dependence, unspecified, uncomplicated
CPT/HCPCS: 96374; 96375; 96376; 96361; 99284; 74177; 76700; 80053; 83690; 84484; 85025; 87502; 87811; 93005; Q9967